=== PATIENT | male | born 1960 | race Caucasian/White ===

== ENCOUNTER 2016-10-03 05:54 | Day surgery (SDC) | payer BC ==
[~2016-10-03] VITALS: Ht 185.4 cm; Wt 93.9 kg
[2016-10-03] VITALS (10 sets, daily range): BP systolic 123–148; BP diastolic 74–85
[2016-10-03] MEDS ORDERED: Alfentanil 2ml Inj ONE (05:55)
[2016-10-03] MEDS ORDERED: NS Irrig 1000ml ONE (05:55)
[2016-10-03] MEDS ORDERED: Propofol 10mg/ml 20ml IV ONE (05:55)
[2016-10-03] MEDS ORDERED: NS Irrig 2000ml IRRIG ONE (05:55)
[2016-10-03] MEDS ORDERED: Sterile Water Irrig 1000ml IRRIG ONE (05:55)
[2016-10-03] MEDS ORDERED: Succinylcholine 20mg/ml 10ml vial ONE (05:55)
[2016-10-03] MEDS ORDERED: LR 1000ml ONE (05:55)
[2016-10-03] MEDS ORDERED: NKM (06:23)
[2016-10-03] MEDS ORDERED: Ropivacaine 5mg/ml Vial 20ml INJ ONE (06:26)
[2016-10-03] MEDS ORDERED: LR 1000ml 1,000 ML IVLG SCH (06:38)
[2016-10-03] MEDS ORDERED: EPINEPHrine 1mg/1ml Amp ONE (06:40)
[2016-10-03] MEDS ORDERED: Bupivacaine w/Epi 0.5% 30ml Vial INJ ONE (06:40)
[2016-10-03] MEDS ORDERED: Bacitracin 50000 Units Vial ONE (06:40)
--- NOTE | 2016-10-03 06:41 | Anethesia Preoperative Eval ---
Anesthesia Pre-op PMH/ROS General Date of Evaluation: Oct 03, 2016 Time of Evaluation: 07:01 Anesthesiologist: Fede ASA Score: ASA 2 Mallampati Score Class I : Soft palate, uvula, fauces, pillars visible Class II: Soft palate, uvula, fauces visible Class III: Soft palate, base of uvula visible Class IV: Only hard plate visible Mallampati Classification: Class II Surgeon: Keyonna Diagnosis: R Shoulder Pain Surgical Procedure: R Shoulder Biceps Repair Anesthesia History: none Family History: no anesthesia problems Allergies: Coded Allergies: SULFA (SULFONAMIDE ANTIBIOTICS) (Verified Allergy, Unknown, 10/01/16) Medications: see eMAR Past Medical History Hematology/Immune: Reports: other - Skin CA PSxH Narrative: BCC on Face removed Anesthesia Pre-op Phys. Exam Physician Exam Last Vital Signs Date Time Temp Pulse Resp B/P Pulse Ox O2 Delivery O2 Flow Rate FiO2 10/03/16 06:26 97.5 58 20 148/85 99 Room Air Constitutional: NAD Neurologic: CN 2-12 intact Cardiovascular: RRR Respiratory: CTA Gastrointestinal: S/NT/ND Airway Exam Mallampati Score: Class II MO: full ROM: full Teeth: intact Anesthesia Pre-op A/P Risk Assessment & Plan Assessment: ASA 2 Plan: GA, BIS, R Supraclavicular Block Status Change Before Surgery: Yes Pre-Antibiotics Dru Grams Ancef IV Given Within 1 Hr of Incision: Yes Time Given: 07:21 Gee Mistry MD Oct 03, 2016 06:41
[2016-10-03] MEDS ORDERED: Ketorolac 60mg Inj IV PRN (06:45)
[2016-10-03] MEDS ORDERED: Midazolam 2mg/2ml Inj IVP PRN (06:45)
[2016-10-03] MEDS ORDERED: fentaNYL 100 mcg/2 mL IV PRN (06:45)
[2016-10-03] MEDS ORDERED: Ketorolac 30mg Inj IV PRN (06:45)
[2016-10-03] MEDS ORDERED: Hydromorphone 0.5mg/0.5ml inj IVP PRN (06:45)
[2016-10-03] MEDS ORDERED: LORazepam Inj 2mg/ml 1ml IV PRN (06:45)
[2016-10-03] MEDS ORDERED: Meperidine 25mg/0.5ml Inj (FOR RIGORS ONLY) IV PRN (06:45)
[2016-10-03] MEDS ORDERED: Metoclopramide 10mg/2ml Inj IVP PRN (06:45)
[2016-10-03] MEDS ORDERED: Oxycodone/Acetaminophen 5-325 ORAL PRN (06:45)
[2016-10-03] MEDS ORDERED: Atropine Inj 1mg/10ml Syr IV PRN (06:45)
[2016-10-03] MEDS ORDERED: DiphenhydrAMINE 50mg/ml Inj IVP PRN (06:45)
[2016-10-03] MEDS ORDERED: Norco 5mg/325mg tab ORAL PRN ×2 (06:45→13:01)
[2016-10-03] MEDS ORDERED: Norco 7.5mg/325mg tab ORAL PRN (06:45)
--- NOTE | 2016-10-03 07:05 | Pre-Procedure Note/Attestation ---
Pre-Procedure Note/Attestation Complete Prior to Procedure Planned Procedure: right Procedure Narrative: shoulder arthroscopy and open proximal biceps tenodesis.. Indications for Procedure Pre-Operative Diagnosis: proximal biceps tendon rupture Attestation I attest that I discussed the nature of the procedure; its benefits; risks and complications; and alternatives (and the risks and benefits of such alternatives ), prior to the procedure, with the patient (or the patient's legal fuels sales representative). I attest that, if there was a reasonable possibility of needing a blood transfusion, the patient (or the patient's legal fuels sales representative) was given the [facility] standardized written summary, pursuant to the [place] Blood Safety Act ([place] Health and Safety Code # 1645, as amended). I attest that I re-evaluated the patient just prior to the surgery and that there has been no change in the patient's H&P, except as documented below: VALERIO GRIMM Oct 03, 2016 07:05
--- NOTE | 2016-10-03 08:04 | Immediate Post-Op Evaluation ---
Immediate Post-Op Evalulation Immediate Post-Op Evalulation Procedure: R Biceps Tenodesis Date of Evaluation: Oct 03, 2016 Time of Evaluation: 09:32 IV Fluids: 1000 LR Blood Products: 0 Estimated Blood Loss: 25 Urinary Output: 0 Blood Pressure Systolic: 136 Blood Pressure Diastolic: 82 Pulse Rate: 67 Respiratory Rate: 16 O2 Sat by Pulse Oximetry: 100 Temperature (Fahrenheit): 97 Pain Score (1-10): 2 Nausea: No Vomiting: No Complications 0 Patient Status: awake, reacts, patent, extubated, none Hydration Status: adequate Dru Grams Ancef IV Given Within 1 Hr of Incision: Yes Time Given: 07:21 Gee Mistry MD Oct 03, 2016 08:04
--- NOTE | 2016-10-03 08:05 | 48 Hour Post Anesthesia Eval ---
Post Anesthesia Evaluation Procedure: R Biceps Tenodesis Date of Evaluation: Oct 03, 2016 Time of Evaluation: 11:42 Blood Pressure Systolic: 133 0: 78 Pulse Rate: 81 Respiratory Rate: 18 Temperature (Fahrenheit): 98.2 O2 Sat by Pulse Oximetry: 100 Airway: patent Nausea: No Vomiting: No Pain Intensity: 2 Hydration Status: adequate Cardiopulmonary Status: Stable Mental Status/LOC: patient returned to baseline Follow-up Care/Observations: 0 Post-Anesthesia Complications: 0 Follow-up care needed: ready to discharge Gee Mistry MD Oct 03, 2016 08:05
[2016-10-03] MEDS ORDERED: D5 1/2NS 1,000 ML IV SCH (13:01)
[2016-10-03] MEDS ORDERED: HYDROmorphone 1mg/ml Carpuject SUBQ PRN (13:01)
[2016-10-03] MEDS ORDERED: Tylenol #3 tab (300mg/30mg) ORAL PRN (13:01)
--- NOTE | 2016-10-10 07:00 | Operative Note - Dictated ---
DATE OF OPERATION: 10/09/2016 SURGEON: Elias Newby M.D. GELATIN POWDER MIXER: Chace Sumner M.D. PREOPERATIVE DIAGNOSIS: Right shoulder pain with biceps tendon possible rupture. POSTOPERATIVE DIAGNOSIS: Right shoulder pain with biceps tendon possible rupture. INDICATIONS FOR OPERATION: The patient has persistent shoulder pain anteriorly with a biceps tendon rupture. NAME OF OPERATION: Arthroscopy with debridement of biceps tendon stump and advancement of biceps tendon with biceps tenodesis. ANESTHESIA: General endotracheal tube. DESCRIPTION OF PROCEDURE IN DETAIL: The patient was brought in the operating room and identified as Joselito Macdonald. The right shoulder was prepped and draped in a usual sterile fashion. Arthroscopy was carried out. A prior labral repair was identified. Sutures were seen. The biceps tendon was scarred and the stump was dbrided. There was scarring about the biceps groove. Next, attention was directed to the biceps tendon in the arm. An incision was made to locate the biceps tendon. There was significant scarring around the biceps tendon. The tendon was identified and confirmed. It was necessary to resect the tendon down through the biceps muscle belly to confirm its identity. The biceps tendon was traced up into the biceps groove where it has scarred down in an elongated fashion. This was causing the deformity and biceps tendon dysfunction the patient was experiencing. Next, it was elected to advance the biceps tendon. Using the [employer] system, the lower portion of the biceps groove was identified. A drill bit was used to pérez the anterior cortex of the humerus. A baseball stitch was applied into the biceps tendon. was adjusted. The sutures of the baseball stitch were through the button and the button was advanced into the drill hole and deployed. restored a more normal contour to the biceps muscle belly. Next, the subcutaneous tissue was closed using 2-0 Vicryl. The skin was closed with 2-0 nylon. Marcaine was instilled into the wounds for postoperative pain control. The patient was returned to the supine position and awakened in the operating room in satisfactory condition. Elias Newby M.D. DR: AK/V :04 JOB#: [id number] CC: Elias Newby M.D.; [address] [place] [address]; [place] [address]
== END 2016-10-03 11:00 | disposition home or self-care (01) ==
LOC: SUR 05:54
DX: S46.112A Strain of muscle, fascia and tendon of long head of biceps, left arm, initial encounter (principal); X58.XXXA Exposure to other specified factors, initial encounter; Y92.89 Other specified places as the place of occurrence of the external cause; Y99.9 Unspecified external cause status; Z85.828 Personal history of other malignant neoplasm of skin; Z88.2 Allergy status to sulfonamides
CPT/HCPCS: 29828; J0171; J0330; J0690; J2250; J2704; J2795; J3490; J7120; 94003; 94150